=== PATIENT | male | born 1995 | race Caucasian/White ===

== ENCOUNTER 2020-04-25 18:47 | Emergency (ER) | payer BC ==
[~2020-04-25] VITALS: Ht 193 cm; Wt 81.3 kg
--- NOTE | 2020-04-25 19:23 | NUR ---
PT AMBULATED TO RESTROOM WITH STEADY GAIT TO PROVIDE URINE SAMPLE. UA COLLECTED AND SENT TO LAB.
[2020-04-25 19:35] LABS: MICROSCOPIC NOT IND
[2020-04-25] MEDS ORDERED: IBUPROFEN 800 MG TABLET ONE (19:36)
--- NOTE | 2020-04-25 19:38 | NUR ---
COORDINATOR HOTELS PER MAR.
[2020-04-25 19:46] LABS: ALBUMIN 4.1 g/dL (3.4-5.0); ANION GAP 4 mmol/L (5-15); CALCIUM 8.5 mg/dL (8.5-10.1); CHLORIDE 106 mmol/L (98-107)
[2020-04-25 19:52] LABS: ALANINE AMINOTRANSFERASE 34 U/L (12-78); ALKALINE PHOSPHATASE 79 U/L (45-117); BILIRUBIN,TOTAL 0.4 mg/dL (0.2-1.0); CREATININE 0.94 mg/dL (0.7-1.3); TOTAL PROTEIN 7.5 g/dL (6.4-8.2); TROPONIN I < 0.015 ng/mL (0.000-0.045)
[2020-04-25 19:55] LABS: BASOPHILS # (AUTO) 0.04 x10^3/uL (0-0.1); BASOPHILS % (AUTO) 0 % (0-1); EOSINOPHILS % (AUTO) 2 % (1-7); LYMPHOCYTES % (AUTO) 13 % (22-44); MD NO; MEAN CORPUSCULAR HEMOGLOBIN 31.4 pg (27.5-34.5); MEAN CORPUSCULAR HGB CONC 33.5 g/dL (33.2-36.2); MEAN CORPUSCULAR VOLUME 93.8 fL (81-97); MONOCYTES # (AUTO) 0.83 x10^3/uL (0.2-0.8); MONOCYTES % (AUTO) 7 % (2-9); NEUTROPHILS % (AUTO) 78 % (42-75); PLATELET COUNT 246 x10^3/uL (130-400); RED BLOOD COUNT 4.67 x10^6/uL (4.38-5.82); RED CELL DISTRIBUTION WIDTH 12.4 % (9.4-14.8)
--- NOTE | 2020-04-25 19:57 | NUR ---
ALL RESULTS ARE BACK AT THIS TIME. CHART UP FOR RECHECK.
[2020-04-25 20:00] VITALS: BP 112/64
[2020-04-25] MEDS ORDERED: IBUPROFEN 800 MG TABLET PO ONE (20:00)
== END 2020-04-25 20:58 | disposition home or self-care (01) ==
LOC: ED 20:28
DX: R07.89 Other chest pain (principal); M94.0 Chondrocostal junction syndrome [Tietze]; R94.31 Abnormal electrocardiogram [ECG] [EKG]
CPT/HCPCS: 36415; 71045; 80053; 81003; 84484; 85025; 85379; 93005; 99285